=== PATIENT | female | born 1995 | race Caucasian/White ===

== ENCOUNTER 2020-01-05 09:27 | Inpatient (IN) | payer OTHER ==
[~2020-01-05] VITALS: Ht 154.9 cm; Wt 86.2 kg
[2020-01-05] MEDS ORDERED: LIDOCAINE HCL 2%/EPINEPHRINE 1:100,000 20 ML VIAL INFIL ONE (13:40)
[2020-01-05] MEDS ORDERED: DEXT 5%/LR + PITOCIN 20UNITS/L 1,000 ML IV SCH (14:47)
[2020-01-05] MEDS ORDERED: METHYLERGONOVINE MALEATE 0.2 MG/ML IM PRN (15:00)
[2020-01-05] MEDS ORDERED: MISOPROSTOL 100MCG TABLET VG NR (15:00)
[2020-01-05 15:23] LABS: BASOPHILS % 0.4 % (0.0-2.0); EOSINOPHILS % 0.8 % (0.0-5.0); HEMATOCRIT. 31.1 % (36.0-48.0); HEMOGLOBIN. 10.3 g/dL (12.0-16.0); LYMPHOCYTES % 12.3 % (20.0-50.0); MEAN CORPUSCULAR HEMOGLOBIN 25.8 pg (28.0-32.0); MEAN PLATELET VOLUME 8.8 fl (7.4-10.4); MONOCYTES % 6.6 % (2.0-8.0); NEUTROPHILS % 79.9 % (40.0-76.0); PLATELET 423 x1000/uL (130-400); RED BLOOD CELL COUNT 3.99 mill/uL (4.2-5.4)
[2020-01-05] MEDS: LACTATED RINGERS 1,000 ML IV SCH ×3 (15:25→21:00)
[2020-01-05 15:30] LABS: INR 0.9; PARTIAL THROMBOPLASTIN TIME 22.3 sec (23.4-31.0); PROTHROMBIN TIME 9.9 sec (9.6-11.0)
[2020-01-05 15:39] LABS: *AMPHETAMINES SCREEN URINE NEGATIVE (NEGATIVE); *BARBITURATES SCREEN URINE NEGATIVE (NEGATIVE); *BENZODIAZEPINES SCREEN URINE NEGATIVE (NEGATIVE); *COCAINE SCREEN URINE NEGATIVE (NEGATIVE); METHADONE URINE SCREEN NEGATIVE (NEGATIVE); OPIATES URINE SCREEN NEGATIVE (NEGATIVE)
[2020-01-05 15:40] LABS: CANNABINOID URINE SCREEN NEGATIVE (NEGATIVE); PHENCYCLIDINE URINE SCREEN NEGATIVE (NEGATIVE)
[2020-01-05] MEDS ORDERED: PENICILLIN G POTASSIUM 5 MMU in DEXT 5% WATER 100 ML IV NR (16:00)
[2020-01-05] MEDS ORDERED: BUTORPHANOL TARTRATE 2 MG/ML VIAL ONE (17:04)
[2020-01-05] MEDS ORDERED: ROPIVACAINE HCL/PF EPIDURAL 200 ML EPI SCH (19:45)
[2020-01-05] MEDS: PENICILLIN G POTASSIUM 2.5 MMU in DEXTROSE 5% WATER 50 ML IV SCH (20:50)
[2020-01-06] MEDS: PENICILLIN G POTASSIUM 2.5 MMU in DEXTROSE 5% WATER 50 ML IV SCH ×2 (01:08→05:01)
[2020-01-06] MEDS: LACTATED RINGERS 1,000 ML IV SCH (05:02)
[2020-01-06] MEDS ORDERED: DEXT 5%/LR + PITOCIN 20UNITS/L 1,000 ML IV SCH (09:26)
[2020-01-06] MEDS ORDERED: IBUPROFEN 800MG TABLET PO PRN (09:30)
[2020-01-06] MEDS ORDERED: HEMORRHOIDAL SUPP PR PRN (09:30)
[2020-01-06] MEDS ORDERED: BENZOCAINE/LANOLIN/ALOE VERA SPRAY TOP PRN (09:30)
[2020-01-06] MEDS ORDERED: LANOLIN OINT 7GM TUBE TOP PRN (09:30)
[2020-01-06] MEDS ORDERED: BISACODYL 10MG SUPP PR PRN (09:30)
[2020-01-06] MEDS ORDERED: RHO(D) IMMUNE GLOBULIN 300 MCG/SYR IM PRN (09:30)
[2020-01-06] MEDS ORDERED: GLYCERIN/WITCH HAZEL LEAF MEDICATED PAD TOP PRN (09:30)
[2020-01-06] MEDS ORDERED: IBUPROFEN 400MG TABLET PO PRN (09:30)
[2020-01-06 09:35] VITALS: BP 95/50
[2020-01-06 10:30] VITALS: BP 96/56
[2020-01-06 17:54] VITALS: BP 108/69
[2020-01-06 19:30] VITALS: BP 112/57
[2020-01-06] MEDS: DOCUSATE SODIUM 100MG CAPSULE PO SCH (21:37)
[2020-01-07 04:00] VITALS: BP 117/78
[2020-01-07 06:22] LABS: HEMATOCRIT 30.1 % (36.0-48.0); HEMOGLOBIN 9.9 g/dL (12.0-16.0); MEAN CORPUSCULAR HEMOGLOBIN 25.3 pg (28.0-32.0); MEAN CORPUSCULAR VOLUME 77.4 fL (81.0-99.0); PLATELET 372 x1000/uL (130-400); RED BLOOD CELL COUNT 3.89 mill/uL (4.2-5.4); RED CELL DISTRIBUTION WIDTH 16.2 % (11.6-14.6)
[2020-01-07 07:30] VITALS: BP 122/75
[2020-01-07] MEDS: PRENATAL VIT/FE FUMARATE/FA TABLET PO SCH (08:02)
[2020-01-07 15:20] VITALS: BP 117/69
[2020-01-07 20:00] VITALS: BP 123/73
[2020-01-07] MEDS: DOCUSATE SODIUM 100MG CAPSULE PO SCH (21:00)
[2020-01-08 04:30] VITALS: BP 113/80
[2020-01-08 07:45] VITALS: BP 130/68
[2020-01-08] MEDS: PRENATAL VIT/FE FUMARATE/FA TABLET PO SCH (09:00)
== END 2020-01-08 11:30 | disposition home or self-care (01) | DRG 560 ==
LOC: OBSVTOIN 09:27 → 8 EST LDRP 09:27 → 8EST 01-06 09:15
PROVIDERS: ADMIT Specialist; ATTEND Specialist
PROC: 10E0XZZ Delivery of Products of Conception, External Approach (ICD-10-PCS; principal; 2020-01-06)
PROC: 3E0R3BZ Introduction of Anesthetic Agent into Spinal Canal, Percutaneous Approach (ICD-10-PCS; 2020-01-06)
PROC: 00HU33Z Insertion of Infusion Device into Spinal Canal, Percutaneous Approach (ICD-10-PCS; 2020-01-06)
PROC: 3E033VJ Introduction of Other Hormone into Peripheral Vein, Percutaneous Approach (ICD-10-PCS; 2020-01-06)
DX: O48.0 Post-term pregnancy (principal); Z37.0 Single live birth; Z3A.41 41 weeks gestation of pregnancy
CPT/HCPCS: 36415; 76805; 80305; 85025; 85027; 86592; 86703; 86850; 86900; 87340; 99281; G0378; J0595; J2540; J2590; J2795; J3490; J7060; J7120